=== PATIENT | male | born 1995 | race Two or more races ===

== ENCOUNTER 2018-04-25 02:59 | Emergency (ER) | payer MEDICAID ==
[~2018-04-25] VITALS: Ht 172.7 cm; Wt 52.2 kg
[2018-04-25 03:00] VITALS: Ht 172.7 cm; Wt 52.2 kg
[2018-04-25 04:04] LABS: BASOPHIL % 0.3 % (0-2); PLATELET COUNT 289 x10^3mcL (130-400); RED CELL DISTRIBUTION WIDTH 12.5 % (11.5-14.5)
[2018-04-25 04:22] LABS: CALCIUM 8.8 mg/dL (8.5-10.1); CARBON DIOXIDE 25.7 mmol/L (21-32); CHLORIDE SERUM 108 mmol/L (98-107); GFR1 > 60 mL/min; GLUCOSE SERUM 116 mg/dL (74-106); POTASSIUM SERUM 3.5 mmol/L (3.5-5.1); SODIUM SERUM 143 mmol/L (136-145)
[2018-04-25 04:27] LABS: ALBUMIN 3.9 g/dL (3.4-5.0); ALKALINE PHOSPHATASE 109 U/L (46-116); ALT/SGPT 23 U/L (16-63); AST/SGOT 17 U/L (15-37); BILIRUBIN TOTAL 0.39 mg/dL (0.20-1.00); TOTAL PROTEIN, SERUM 7.1 g/dL (6.4-8.2)
[2018-04-25 04:39] LABS: AMPHETAMINE QUAL UR NONE DETECTED (See below)
[2018-04-25 08:35] VITALS: BP 114/74
[2018-04-25 09:05] LABS: FREE T4 1.17 ng/dL (0.76-1.46)
== END 2018-04-25 08:35 | disposition home or self-care (01) ==
LOC: ED 02:59
PROVIDERS: Emergency Medicine
DX: R07.89 Other chest pain (principal); Q67.6 Pectus excavatum
CPT/HCPCS: 36415; 83880; 84439; 85378; J7030; Q0092